=== PATIENT | male | born 1985 | race American Indian/Alaskan Native ===

== ENCOUNTER 2020-07-18 09:50 | Emergency (ER) | payer OTHER ==
[2020-07-18 10:05] VITALS: BP 126/94; PULSE 72; TEMP 98.6; BMI 28.5
[2020-07-18] MEDS ORDERED: TETRACAINE 0.5% HCL 0.6ML DROPPER.BOTTLE OU ONE (10:29)
[2020-07-18] MEDS ORDERED: FLUORESCEIN NA 1 EA STRIP OD ONE (10:30)
[2020-07-18] MEDS ORDERED: FLUORESCEIN NA 1 EA STRIP ONE (10:33)
[2020-07-18] MEDS ORDERED: TETRACAINE 0.5% OPHTH SOLN 2 ML BOTTLE ONE (10:33)
--- NOTE | 2020-07-18 10:43 | PDOC ---
History of Present Illness - General Chief Complaint: Eye Problem Stated Complaint: EYE INFECTION Time Seen by Provider: 07/18/20 10:13 History Source: Patient Exam Limitations: No Limitations - History of Present Illness Initial Comments: 07/18/20 10:38 34-year-old male no significant past medical history no contacts or glasses use presenting with bilateral eye injection. Patient states that he had a injection with crusting in the right eye was seen in urgent care and given erythromycin ointment with only mild improvement and then the injection and crusting spread to the left eye. Patient denies any changes in vision. Patient is complaining of right eye foreign body sensation described as sand-like. Pt otherwise denies: fevers, chills, syncope, lightheadedness, dizziness, headaches, neck pain, chest pain, shortness of breath, palpitations, back pain, abdominal pain, nausea, vomiting, diarrhea, constipation. Past History - Medical History Allergies/Adverse Reactions: Allergies Allergy/AdvReac Type Severity Reaction Status Date / Time No Known Allergies Allergy Verified 07/18/20 10:02 Home Medications: Ambulatory Orders Ofloxacin 0.3% Ophth Soln [Ocuflox -] 1 drop AD Q4H 7 Days #1 bottle 07/18/20 COPD: No Other medical history: DENIES - Immunization History Immunization Up to Date: No - Psycho-Social/Smoking History Smoking History: Never smoked - Substance Abuse Hx (Audit-C & DAST Scrn) How often the patient has a drink containing alcohol: Never Score: In Men: 4 or > Positive; In Women: 3 or > Positive: 0 Screen Result (Pos requires Nsg. Audit-10AR): Negative In the last yr the pt used illegal drug/Rx for NonMed reason: No Score: Yes response is considered Positive: 0 Screen Result (Positive result requires Nsg. DAST-10): Negative *Physical Exam - Vital Signs Last Vital Signs Temp Pulse Resp BP Pulse Ox 98.6 F 72 18 126/94 100 07/18/20 10:03 07/18/20 10:03 07/18/20 10:03 07/18/20 10:03 07/18/20 10:03 - Physical Exam 07/18/20 10:39 Gen: AAOx 3, no acute distress, comfortable, no signs of respiratory distress HENT: atraumatic, normocephalic with no laceration or contusion. Nasal mucosa without erythema. Oropharynx without erythema or exudates. Mucous membranes moist. EYES: YARI and EOMI. No pin-point pupils on exam. Conjunctivitis with injection to B/L eyes. No resting nystagmus. No signs of hordeolum or chalazion . watery drainage. No Jose Hunn pupils or Abiola's syndrome. No lid edema or proptosis to the eye. No entrapment of extraocular muscles. Peripheral visual wong intact. VA 20/20 b/l NECK: supple; trachea midline; no JVD, no lymphadenopathy, or thyromegaly CV: RRR no murmurs, gallops, or rubs. CHEST: CTA b/l no wheezing, rales or rhonchi ABD: +BS/ND. no TTP; soft, no rebound, no guarding EXTREMITY: no cyanosis or erythema. 2+ dorsalis pedis, posterior tibial, and radial pulse. No pedal edema; no calf swelling or tenderness SKIN: no rash, warm and dry, no diaphoresis HEME: no purpura or ecchymosis NEURO: normal speech, CN II-XII intact, sensation intact, normal gait, no cerebellar deficits MS: 5/5 strength in all extremities, FROM intact in all extremities. Medical Decision Making - Medical Decision Making 07/18/20 10:40 34-year-old male with bilateral conjunctivitis Vital signs stable Due to foreign body sensation in right eye will rule out corneal abrasion with tetracaine and fluorscein Tetracaine placed to R eyes to numb eyes. Eyelids inverted to r/o foreign body. No foreign body visualized. Fluorescein dye placed in R eyes to r/o corneal abrasion. No uptake of fluorescein dye. No ice-rink sign. No corneal abrasions visualized. Pt is stable. Patient told to continue erythromycin prescribed by urgent care nightly but will begin patient on ofloxacin drops every 4 hours. Patient to follow-up with ophthalmology today or tomorrow without fail. Pt appears well and is safe and stable for discharge with strict return precautions including signs and symptoms requring immediate return to the ED Supportive care instructions explained and given to pt. Reasons to return emergently to ER explained and given. Importance of follow up with PMD and other specialists as indicated stressed to pt. Pt verbalized understanding of instructions. Pt to follow up with PMD in 2 days. Discharge - Discharge Information Problems reviewed: Yes Clinical Impression/Diagnosis: Acute bacterial conjunctivitis of both eyes Condition: Stable Disposition: HOME - Additional Discharge Information Prescriptions: Ofloxacin 0.3% Ophth Soln [Ocuflox -] 1 drop AD Q4H 7 Days #1 bottle - Follow up/Referral Referrals: David Hopkins MD [Primary Care Provider] - Rancho Hsieh MD [Staff Physician] - Alvin Hall MD [Staff Physician] - - Patient Discharge Instructions Patient Printed Discharge Instructions: DI for Conjunctivitis Additional Instructions: YOU MUST FOLLOW UP WITH OPTHO - Post Discharge Activity
== END 2020-07-18 10:48 | disposition home or self-care (01) ==
LOC: JERFT 09:50
DX: H10.89 Other conjunctivitis (principal)
CPT/HCPCS: 99283-25